=== PATIENT | female | born 1980 | race Caucasian/White ===

== ENCOUNTER 2018-06-27 14:36 | Emergency (ER) | payer BC, OTHER ==
[2018-06-27 14:57] VITALS: BMI 33.0
--- NOTE | 2018-06-27 14:57 | PDOC ---
Rapid Medical Evaluation Time Seen by Provider: 06/27/18 14:53 Medical Evaluation: Allergies Allergy/AdvReac Type Severity Reaction Status Date / Time diphenhydramine HCl Allergy Verified 06/29/15 03:21 [From Benadryl] iodine Allergy Vomiting Verified 06/29/15 03:21 shellfish derived Allergy Verified 06/29/15 03:21 06/27/18 14:54 I have performed a brief in-person evaluation of this patient. The patient presents with a chief complaint of: Chest pain this am, worse w/ any movement. 33 weeks , no issues w/ preg so far. H/o asthma Pertinent physical exam findings: Stable I have ordered the following:ekg/labs The patient will proceed to the ED for further evaluation. Discharge Disposition - Diagnosis Chest pain Qualifiers: Chest pain type: unspecified Qualified Code(s): R07.9 - Chest pain, unspecified - Referrals - Patient Instructions - Post Discharge Activity
[2018-06-27 16:03] LABS: BASO % 0.3 % (0-2.0); EOS % 2.2 % (0-4.5); HEMATOCRIT 33.5 % (32.4-45.2); HEMOGLOBIN 11.3 GM/dL (10.7-15.3); MCH 31.4 pg (25.7-33.7); MCHC 33.8 g/dl (32.0-36.0); MEAN CELL VOLUME 92.7 fl (80-96); MEAN PLT VOLUME 7.5 fl (7.5-11.1); MONO % 7.7 % (3.8-10.2); NEUT % 73.8 % (42.8-82.8); PLATELET COUNT 330 K/MM3 (134-434); RBC 3.62 M/mm3 (3.60-5.2); RDW 13.6 % (11.6-15.6)
[2018-06-27 17:03] LABS: ALBUMIN 2.4 g/dl (3.4-5.0); ALK PHOS 126 U/L (45-117); ANION GAP 8 MMOL/L (8-16); BILIRUBIN,TOTAL 0.2 mg/dL (0.2-1); BLOOD UREA NITROGEN 10 mg/dL (7-18); CALCIUM 8.6 mg/dL (8.5-10.1); CHLORIDE 107 mmol/L (98-107); CO2 23 mmol/L (21-32); CREATININE 0.5 mg/dL (0.55-1.3); GLUCOSE,RANDOM 73 mg/dL (74-106); POTASSIUM 4.1 mmol/L (3.5-5.1); SGOT/AST 17 U/L (15-37); SGPT/ALT 14 U/L (13-61); SODIUM 137 mmol/L (136-145); TOT PROT 6.4 g/dl (6.4-8.2)
[2018-06-27] MEDS ORDERED: ACETAMINOPHEN 500 MG TABLET (FP) PO ONE (17:33)
[2018-06-27] MEDS ORDERED: ACETAMINOPHEN 500 MG TABLET (FP) ONE (17:51)
--- NOTE | 2018-06-27 17:55 | PDOC ---
Attending Attestation - Resident Resident Name: Ary Montalvo - ED Attending Attestation I have performed the following: I have examined & evaluated the patient, The case was reviewed & discussed with the resident, I agree w/resident's findings & plan, Exceptions are as noted - Medical Decision Making 06/27/18 17:55 A portion of this note was documented by scribe services under my direction. I have reviewed the details of the note, within reason, and agree with the documentation with the following case summary and management plan written by me. Patient treated in the ED. Nursing notes are reviewed and incorporated into the medical decision-making. Vital signs reviewed. Peripheral IV access obtained by the nurse, laboratory studies are drawn and sent, reviewed and interpreted by myself. Vital Signs Temp Pulse Resp BP Pulse Ox 98.6 F 83 20 120/72 97 06/27/18 14:55 06/27/18 14:55 06/27/18 14:55 06/27/18 14:55 06/27/18 14:55 37-year-old female with past medical history of asthma presents with atypical chest pain since this morning. The patient's currently 33 weeks with her first . Reports no complications. Stated that she woke up and noticed a reproducible left upper chest pain worsened with movements. States occasionally when she takes a deep breath she notices symptoms but denies feeling short of breath. Denies short of breath on exertion. The patient's physical exam appears consistent with muscle skeletal chest pain. The patient has a normal EKG and a negative troponin. I do not suspect pulmonary embolism at this time. The patient has not taken any medications so we will give Tylenol. I advised patient to trial heat packs and Tylenol and to follow-up with the smutter. Pt feels reassured and would like to go home. <Rinku Tovar - Last Filed: 06/27/18 17:50> - HPI HPI: 06/27/18 17:59 The patient is a 37 year old 33 weeks female, with a significant past medical history of asthma, who presents to the emergency department with, left anterior chest wall radiating to left shoulder pain. As per patient, her pain is worsened with movement, pleuritic in nature, and pressure-like. She has not taken anything for her symptoms. She denies previous episodes of similar symptoms. She denies any shortness of breath or palpitations. She denies recent fevers, chills, headache or dizziness. She denies recent nausea, vomit, diarrhea or constipation. She denies recent dysuria, frequency, urgency or hematuria. Allergies: As per nursing notes. Past surgical history: None reported. Social history: Nonsmoker. Denies EtOH use and recreational drug use. - Physicial Exam PE: 06/27/18 17:59 GENERAL: Awake, alert, and fully oriented, in no acute distress HEAD: No signs of trauma EYES: PERRLA, EOMI, sclera anicteric, conjunctiva clear ENT: Auricles normal inspection, hearing grossly normal, nares patent, oropharynx clear without exudates. Moist mucosa NECK: Normal ROM, supple, no lymphadenopathy, JVD, or masses LUNGS: Breath sounds equal, clear to auscultation bilaterally. No wheezes, and no crackles HEART: Regular rate and rhythm, normal S1 and S2, no murmurs, rubs or gallops +CHEST: Reproducible left upper chest pain upon palpation. +ABDOMEN: Gravid. Soft, nontender, normoactive bowel sounds. No guarding, no rebound. No masses EXTREMITIES: Normal range of motion, no edema. No clubbing or cyanosis. No cords, erythema, or tenderness NEUROLOGICAL: Cranial nerves II through XII grossly intact. Normal speech, normal gait SKIN: Warm, Dry, normal turgor, no rashes or lesions noted. <Blue Yang - Last Filed: 06/27/18 17:59> Heart Score/ECG Review #1 ECG reviewed & interpreted by me at: 15:00 06/27/18 17:50 NSR 88, TWI III, normal axis, normal intervals, QTC 450 <Rinku Tovar - Last Filed: 06/27/18 17:50> Attestations - Attestations 06/27/18 17:59 Documentation prepared by Blue Yang, acting as medical office manager for Rinku Tovar MD. <Blue Yang - Last Filed: 06/27/18 17:59>
--- NOTE | 2018-06-27 18:00 | PDOC ---
History of Present Illness - General Chief Complaint: Chest Pain Stated Complaint: CHEST PAIN 33WKS Time Seen by Provider: 06/27/18 14:53 - History of Present Illness Initial Comments: Jennifer West is a 37yo woman with a h/o asthma, currently 33wks who presents with left upper chest v left shoulder pain since this morning. She reports that when she woke this morning, she noticed pain in her left upper chest that goes all the way through to her back. The left shoulder/chest is sore , and the pain worsens with deep breaths and shoulder movement. Ms West states that the pain was not that significant this morning, and she assumed that it would eventually stop on its own. She went to work today without any issues, though she does not have a physical job that requires lifting or significant arm movement. This afternoon, she had an appointment with her OB and was encouraged to come to the ED for evaluation. Ms West is not aware of any injury to her chest, shoulder, or back. She has not lifted anything heavy recently. She denies any fever, chills, new cough, palpitations, dizziness, nausea, abdominal pain, or unusual heartburn (though she has had some slight heartburn with her .) She does note some sneezing recently but no other infectious symptoms. She additionally denies any periods of immobility, travel, recent surgeries, broken bones, personal history of cancer, or coagulation disorder. She did not take any pain medication at home because she was concerned about what was safe during . Past History - Past Medical History Allergies/Adverse Reactions: Allergies Allergy/AdvReac Type Severity Reaction Status Date / Time Penicillins Allergy Unknown Verified 06/27/18 17:14 diphenhydramine HCl Allergy Vomiting Verified 06/27/18 17:13 [From Benadryl] iodine Allergy Vomiting Verified 06/29/15 03:21 shellfish derived Allergy Verified 06/27/18 17:13 Home Medications: Ambulatory Orders Albuterol Sulfate Inhaler - [Ventolin Hfa Inhaler -] 1 - 2 inh PO QID 06/27/18 No122/Iron/Folic Acid [ Multi Tablet] 1 each PO DAILY 06/27/18 Asthma: Yes COPD: No - Surgical History Appendectomy: Yes - Reproductive History Is Patient Now?: Yes - Suicide/Smoking/Psychosocial Hx Smoking History: Unknown if ever smoked Hx Alcohol Use: Yes (OCC) Substance Use Type: None Review of Systems - Review of Systems Comments:: General: No fevers, no chills, no weight or appetite change, no malaise HEENT: No changes in vision, no changes in hearing, no congestion, no sore throat CV: No palpitations, no LE edema Pulm: No SOB, no cough, no wheezing. +pleuritic chest pain GI: No nausea or vomiting, no change in bowel habits, no melena : No frequency, no urgency, no dysuria Musc: No back pain, no joint swelling, no recent injury Skin: No rash, no lesions, no erythema Endo: No excessive thirst, no heat/cold intolerance Heme: No unusual bruising or bleeding, no swollen glands Neuro: No syncope, no numbness/tingling, no focal weakness Vasc: No claudication Psych: No recent change in mood, no SI or HI *Physical Exam - Vital Signs Last Vital Signs Temp Pulse Resp BP Pulse Ox 98.6 F 83 20 120/72 97 06/27/18 14:55 06/27/18 14:55 06/27/18 14:55 06/27/18 14:55 06/27/18 14:55 - Physical Exam Comments: General: Comfortable, no acute distress HEENT: PERRL, EOMI, MMM, voice normal, normal neck ROM, no LAD Cards: RRR, no murmur appreciated Pulm: Comfortable on room air, clear to auscultation bilaterally Chest/Back: Tender with deep palpation at left upper chest and back Abd: Gravid, soft, nontender Ext: Atraumatic. No LE edema. ROM intact. Strength 5/5 and equal bilaterally. Left shoulder pain with active and passive movement Vasc: Extremities WWP. Palpable radial and pedal pulses bilaterally Skin: Normal color, no rashes or lesions Neuro: A&Ox3, CN grossly intact, normal speech, motor/sensory grossly intact and symmetric Psych: Mood appropriate to situation Heart Score/ECG Review - History History: Slightly suspicious - Electrocardiogram EKG: Normal - Age Age: </= 45 - Risk Factors Risk Factors Heart Score: No Hx Hypercholesterolemia, No Hx Hypertension, No Hx Diabetes, No Smoking History, No Positive family hx of cardiac disease, No Hx Obesity Based on the list above the patient has:: No risk factors known - Troponin Troponin: </= normal limit - Score Heart Score - Total: 0 - ECG Intrepretation Rhythm: Regular Rhythm - Ansted Ansted: Normal - ECG Impressions Normal ECG: Yes Non-specific ST Elevation: No Ischemic Changes: No Bradycardia: No Comment:: 06/27/18 18:04 Normal sinus ED Treatment Course - LABORATORY CBC & Chemistry Diagram: 06/27/18 15:50 06/27/18 17:00 - ADDITIONAL ORDERS Additional order review: Laboratory Results 06/27/18 06/27/18 17:00 15:50 Sodium 137 Potassium 4.1 Chloride 107 Carbon Dioxide 23 Anion Gap 8 BUN 10 Creatinine 0.5 L Creat Clearance w eGFR > 60 Random Glucose 73 L Calcium 8.6 Total Bilirubin 0.2 AST 17 ALT 14 Alkaline Phosphatase 126 H Creatine Kinase 47 Troponin I < 0.02 Total Protein 6.4 Albumin 2.4 L 06/27/18 15:50 RBC 3.62 MCV 92.7 MCHC 33.8 RDW 13.6 MPV 7.5 D Neutrophils % 73.8 Lymphocytes % 16.0 D Monocytes % 7.7 Eosinophils % 2.2 D Basophils % 0.3 Medical Decision Making - Medical Decision Making 06/27/18 18:05 Jennifer West is a 37yo woman with a history of asthma, currently 33wks ( no complicaitons) who presents with left shoulder v upper chest/back pain. - EKG and labs ordered in triage - EKG reviewed. NSR without any abnormalities noted - Labs without any notable abnormalities. Troponin negative - Normal vitals. No tachycardia, no tachypnea, satting well, no fever - No concerns for cardiac or pulmonary abnormalities given normal labs, normal vitals, normal heart/lung exams - Pain worse with palpation, arm movement, and deep breathing strongly suggests musculoskeletal pain - Plan to give 1g PO acetaminophen for pain - Will discharge home. Acetaminophen, heat packs for pain relief. Should follow up with her PMD within the next week. Discussed with Ms West, who agrees to this plan. Discussed with Dr Tovar. Ary Montalvo PGY1 *DC/Admit/Observation/Transfer Diagnosis at time of Disposition: Musculoskeletal chest pain - Discharge Dispostion Disposition: HOME Condition at time of disposition: Good Decision to Admit order: No - Referrals Referrals: Pavan Jain MD [Staff Physician] - - Patient Instructions Printed Discharge Instructions: DI for Atypical Chest Pain Additional Instructions: Discharge Instructions: - You were seen in the ED for left chest, shoulder, and left upper back pain - You had tests of your heart and lungs that were all normal - Your pain is most likely due to soreness in your chest or shoulder muscles - You should take acetaminophen (Tylenol) up to 1g (two extra-strength tablets) every 6 hours for pain. Do NOT take more than 4g (4000mg) per day - Consider using heat or cold packs to help with pain relief - Follow up with your primary physician within the next week. You have been referred to the resident clinic with Dr Jain if you need to establish care with a primary care doctor - Seek emergency care at the closest available ED if you have chest pain associated with difficulty breathing, racing heart, loss of consiousness. See your regular doctor if you develop a cough or fever to 101 or higher. - Post Discharge Activity
[2018-06-27 19:47] VITALS: BP 122/68; PULSE 80; TEMP 98.4
--- NOTE | 2018-06-29 15:17 | EKG ---
Test Reason : Blood Pressure : / mmHG Vent. Rate : 088 BPM Atrial Rate : 088 BPM P-R Int : 128 ms QRS Dur : 082 ms QT Int : 372 ms P-R-T Axes : 034 060 033 degrees QTc Int : 450 ms NORMAL SINUS RHYTHM NORMAL ECG NO PREVIOUS ECGS AVAILABLE Confirmed by ANAND MAXWELL, NATE ([id number]) on 06/29/2018 3:17:33 PM Referred By: Confirmed By:NATE MICHEL MD
== END 2018-06-27 19:45 | disposition home or self-care (01) ==
LOC: JER 14:36
DX: O26.893 Other specified pregnancy related conditions, third trimester (principal); R07.89 Other chest pain; O99.511 Diseases of the respiratory system complicating pregnancy, first trimester; J45.909 Unspecified asthma, uncomplicated; Z3A.33 33 weeks gestation of pregnancy; Z88.0 Allergy status to penicillin; Z91.013 Allergy to seafood; Z88.8 Allergy status to other drugs, medicaments and biological substances
CPT/HCPCS: 36415; 80053; 82550; 84484; 85025; 93005; 93010; 99282-25

== ENCOUNTER 2018-07-28 03:50 | Inpatient (IN) | payer OTHER, BC ==
[2018-07-28] MEDS ORDERED: DEXTROSE 5%-LACTATED RINGERS 500 ML IV ONE (04:20)
[2018-07-28] MEDS ORDERED: DEXTROSE 5%-LACTATED RINGERS 1,000 ML IV ONE (04:50)
[2018-07-28 05:07] LABS: BASO % 0.4 % (0-2.0); EOS % 1.2 % (0-4.5); HEMATOCRIT 33.3 % (32.4-45.2); HEMOGLOBIN 11.2 GM/dL (10.7-15.3); LYMPH % 14.2 % (8-40); MCH 30.7 pg (25.7-33.7); MCHC 33.6 g/dl (32.0-36.0); MEAN CELL VOLUME 91.5 fl (80-96); MEAN PLT VOLUME 8.3 fl (7.5-11.1); MONO % 7.2 % (3.8-10.2); PLATELET COUNT 314 K/MM3 (134-434); RBC 3.64 M/mm3 (3.60-5.2); RDW 13.9 % (11.6-15.6); WHITE BLOOD COUNT 11.6 K/mm3 (4.0-10.0)
[2018-07-28 05:13] VITALS: BMI 34.2
[2018-07-28 05:24] LABS: INR 0.94 (0.83-1.09); PROTHROMBIN TIME (PATIENT) 11.1 SEC (9.7-13.0)
[2018-07-28 05:27] LABS: ACTIVATED PTT 23.5 SECONDS (25.2-36.5)
[2018-07-28 05:35] LABS: ANION GAP 13 MMOL/L (8-16); BLOOD UREA NITROGEN 10 mg/dL (7-18); CALCIUM 8.8 mg/dL (8.5-10.1); CHLORIDE 104 mmol/L (98-107); CO2 20 mmol/L (21-32); CREATININE 0.6 mg/dL (0.55-1.3); GLUCOSE,RANDOM 79 mg/dL (74-106); SODIUM 137 mmol/L (136-145)
--- NOTE | 2018-07-28 07:13 | HP ---
Past Medical History - Admission History of Present Illness: 37 yo @ 37 6/7 wks by first trimester ultrasound, EDC 08/12/2018 complicated by: 1. Overweight - 40 lb wt gain this Elevated 1 H GCT, negative GTT Most recent EFW 2847g, 64 % 07/11/18 2. Very distant history of epilepsy No seizures in > 15+ years No medications 3. AMA - [id number] WNL AFP WNL Patient reports contractions which began yesterday and increased in intensity and frequency at 0300. She reports movement, denies leakage of fluid or vaginal bleeding. History Source: Patient Limitations to Obtaining History: No Limitations - Past Medical History Cardiovascular: No: HTN Pulmonary: Yes: Asthma Gastrointestinal: No: GERD ...: 2 ...Para: 0 ...Term: 0 ...: 0 ...Spon : 1 ...Induced : 0 ...Multiple Gestation: 0 ...EDC by Sono: 08/12/18 Heme/Onc: No: Anemia - Past Surgical History Past Surgical History: Yes: Appendectomy Hx Myomectomy: No Hx Transabdominal Cerclage: No - Smoking History Smoking history: Never smoked Have you smoked in the past 12 months: No - Alcohol/Substance Use Hx Alcohol Use: No History of Substance Use: reports: None - Social History Usual Living Arrangement: Yes: With Spouse History of Recent Travel: No Home Medications - Allergies Allergies/Adverse Reactions: Allergies Allergy/AdvReac Type Severity Reaction Status Date / Time Penicillins Allergy Unknown Verified 06/27/18 17:14 diphenhydramine HCl Allergy Vomiting Verified 06/27/18 17:13 [From Benadryl] iodine Allergy Vomiting Verified 06/29/15 03:21 shellfish derived Allergy Verified 06/27/18 17:13 - Home Medications Home Medications: Ambulatory Orders Albuterol Sulfate Inhaler - [Ventolin Hfa Inhaler -] 1 - 2 inh PO QID 06/27/18 Flaxseed/Omega3,6,9/Fatty Acid [Flax Seed Oil 1,300 mg Softgel] 1 capl PO BID No122/Iron/Folic Acid [ Multi Tablet] 1 each PO DAILY 06/27/18 Family Disease History - Family Disease History Family History: Denies Review of Systems - Review of Systems Constitutional: reports: No Symptoms Cardiovascular: reports: No Symptoms Respiratory: reports: No Symptoms Gastrointestinal: reports: No Symptoms Genitourinary: reports: No Symptoms Neurological: reports: No Symptoms Endocrine: reports: No Symptoms Physical Exam - Maternity Vital Signs: Vital Signs Temperature 98.1 F 07/28/18 04:20 Pulse Rate 92 H 07/28/18 04:20 Respiratory Rate 18 07/28/18 04:20 Blood Pressure 123/79 07/28/18 04:20 O2 Sat by Pulse Oximetry (%) Constitutional: Yes: Well Nourished, No Distress, Calm Cardiovascular: Yes: Regular Rate and Rhythm Lungs: Clear to auscultation - Abdominal Exam/OB Number of Fetuses: Single Presentation: Vertex Contractions: Yes Regularity: Regular Intensity: Mod/Strong Category: I Accelerations: Non-Uniform Decelerations: None - Vaginal Exam/OB Vaginal Bleediing: No Dilatation (cm): 4 Effacement (%): 90 Amniotic Membrane Status: Intact Station: -3 - Physical Exam Psychiatric: Yes: Alert, Oriented - Labs Lab Results: CBC, BMP 07/28/18 04:15 07/28/18 04:15 PNL: O positive, antibody negative, RPR NR; HIV neg; HBS Ag neg; HCV neg; Hg Elise AA; Parvo immune; Rubella immune; varicella immune; GCT 131 --> GTT WNL; GBS neg; Inheritest WNL Hemorrhage Risk Assessment - Risk Factors Medium Risk Factors: Yes: None High Risk Factors: Yes: None Risk Score: 1 Risk Level: Medium Risk Assessment/Plan 37 yo @ 37 + wks active labor 1. Admit to L&D 2. Consents reviewed and signed 3. GBS negative 4. Will offer pain medication upon request 5. Will proceed with expectant management
[2018-07-28] MEDS: ELECTROLYTE-148 SOLN 1,000 ML IV SCH ×2 (07:15→18:00)
[2018-07-28] MEDS ORDERED: BUPIVACAINE HCL/PF 0.25% (2.5MG/ML) 10 ML VIAL ONE (07:30)
[2018-07-28] MEDS ORDERED: FENTANYL/BUPIVACAINE/NS/PF - PCEA - 50 ML DISP.SYRIN EP ONE ×4 (07:32→18:08)
[2018-07-28] MEDS ORDERED: NALOXONE HCL 0.4 MG/ML VIAL IVPUSH PRN (08:03)
[2018-07-28] MEDS ORDERED: FENTANYL/BUPIVACAINE/NS/PF - PCEA - 50 ML DISP.SYRIN EP SCH (08:15)
[2018-07-28] MEDS ORDERED: CITRIC ACID/SODIUM CITRATE 30 ML UNIT-DOSE CUP PO ONE (10:45)
--- NOTE | 2018-07-28 11:05 | PN ---
Ante-Partal Exam - Subjective Subjective: No complaints Vital Signs: Vital Signs Temperature 98.2 F 07/28/18 10:00 Pulse Rate 97 H 07/28/18 10:30 Respiratory Rate 18 07/28/18 10:30 Blood Pressure 103/79 07/28/18 10:30 O2 Sat by Pulse Oximetry (%) 98 07/28/18 10:30 Bleeding: No Headache: No Visual changes: No Right upper quadrant pain: No Pain (scale 1-10): 0 - Contractions Contractions: Yes Regularity: Irregular Intensity: Mod/Strong Monitor Mode: External - Exam during Labor Heart Rate: 145 Variability: Moderate Heart Rate Location: Midline Category: I Monitor Accelerations: Present Monitor Decelerations: None (prolonged decel x 1 after AROM- recovered spont)) Exam: Vaginal Dilatation (cm): 5 Effacement (%): 90 Amniotic Membrane Status: Bulging Presentation: Vertex Station: 0 - Intrapartum Hemorrhage Risk Medium Risk Factors: None High Risk Factors: None Risk Score: 0 Risk Level: Low Risk - Assessment/Plan Assessment/Plan: 37yo P0 with active labor. Fetus with Category I tracing. AROM was done. Plan to monitor labor.
[2018-07-28] MEDS ORDERED: OXYTOCIN 30 UNITS in 0.9% NS 30 UNIT/500 ML INFUS.BAG IVPB ONE (13:39)
[2018-07-28] MEDS ORDERED: ALBUTEROL SO4 8 GM HFA INHALER IH PRN ×2 (13:43→13:46)
--- NOTE | 2018-07-28 13:43 | PN ---
Ante-Partal Exam - Subjective Subjective: No complaints Vital Signs: Vital Signs Temperature 98.2 F 07/28/18 10:00 Pulse Rate 109 H 07/28/18 13:15 Respiratory Rate 18 07/28/18 13:15 Blood Pressure 113/63 07/28/18 13:15 O2 Sat by Pulse Oximetry (%) 95 07/28/18 13:15 Bleeding: No Headache: No Visual changes: No Right upper quadrant pain: No Pain (scale 1-10): 0 - Contractions Contractions: Yes Regularity: Irregular Intensity: Moderate Monitor Mode: External - Exam during Labor Heart Rate: 140 Variability: Moderate Heart Rate Location: Midline Category: I Monitor Accelerations: Present Monitor Decelerations: None Exam: Vaginal Dilatation (cm): 5 Effacement (%): 90 Amniotic Membrane Status: Leaking Amniotic Fluid: Clear Presentation: Vertex Station: 0 Remarks: Adequate pelvimetry, EFW ~3200g by Roger's maneuvers - Intrapartum Hemorrhage Risk Medium Risk Factors: None High Risk Factors: None Risk Score: 0 Risk Level: Low Risk - Assessment/Plan Assessment/Plan: Arrest of dilation Inadequate contractions Fetus with category I tracing Tx options d/w pt, including expectant mgt, pitocin, or C/S. Risks abd benefits explained. Pt prefers pitocin augmentation.
[2018-07-28] MEDS ORDERED: OXYTOCIN 30 UNITS in 0.9% NS 30 UNIT/500 ML INFUS.BAG IVPB SCH (13:45)
[2018-07-28] MEDS ORDERED: OXYTOCIN 20 UNITS in 0.9% NS 20 UNIT/1,000 ML INFUS.BAG IV ONE (18:25)
[2018-07-28] MEDS ORDERED: LIDOCAINE HCL 1% PRESERVATIVE FREE - 30ML VIAL ONE (18:25)
[2018-07-28] MEDS ORDERED: OXYTOCIN 20 UNITS in 0.9% NS 20 UNIT/1,000 ML INFUS.BAG IV SCH (20:15)
[2018-07-28] MEDS ORDERED: WITCH HAZEL 50% (TUCKS) 40 PAD/JAR PAD TP PRN (20:15)
[2018-07-28] MEDS ORDERED: BISACODYL 10 MG SUPP.RECT RC PRN (20:15)
[2018-07-28] MEDS ORDERED: BENZOCAINE 20% 57 GM BOTTLE TP PRN (20:15)
[2018-07-28] MEDS ORDERED: oxyCODONE HCL 5 MG TABLET PO PRN (20:15)
[2018-07-28] MEDS ORDERED: METHYLERGONOVINE MALEATE 0.2 MG/1 ML AMP IM PRN (20:15)
[2018-07-28] MEDS ORDERED: BENZOCAINE 28 GM HEMORRHOIDAL OINTMENT TP PRN (20:15)
[2018-07-28] MEDS: ACETAMINOPHEN 325 MG TABLET (FP) PO PRN (22:49)
[2018-07-28] MEDS: IBUPROFEN 600 MG TABLET (FP) PO PRN (22:51)
[2018-07-29] MEDS: ACETAMINOPHEN 325 MG TABLET (FP) PO PRN ×3 (06:15→21:44)
[2018-07-29] MEDS: IBUPROFEN 600 MG TABLET (FP) PO PRN ×4 (06:17→21:45)
[2018-07-29 08:06] LABS: BASO % 0.2 % (0-2.0); EOS % 0.4 % (0-4.5); HEMATOCRIT 28.7 % (32.4-45.2); HEMOGLOBIN 10.1 GM/dL (10.7-15.3); LYMPH % 11.1 % (8-40); MCH 32.7 pg (25.7-33.7); MCHC 35.4 g/dl (32.0-36.0); MEAN CELL VOLUME 92.2 fl (80-96); MEAN PLT VOLUME 8.2 fl (7.5-11.1); MONO % 6.9 % (3.8-10.2); NEUT % 81.4 % (42.8-82.8); PLATELET COUNT 267 K/MM3 (134-434); RBC 3.11 M/mm3 (3.60-5.2); RDW 13.9 % (11.6-15.6); WHITE BLOOD COUNT 18.1 K/mm3 (4.0-10.0)
--- NOTE | 2018-07-29 08:11 | PN ---
Delivery - Delivery Vaginal Delivery: No Problems, Spontaneous Type of Anesthesia: Epidural Episiotomy/Laceration: Perineal Extension/lac, 2nd degree EBL (cc): 300 Delivery, Single - Stages of Labor Date 1st Stage Initiatied: 07/28/18 Time 1st Stage Initiated: 07:45 Date 2nd Stage Initiated: 07/28/18 Time 2nd Stage Initiated: 19:00 Date of Delivery: 07/28/18 Time of Delivery: 19:55 Date Placenta Delivered: 07/28/18 Time Placenta Delivered: 20:05 Placenta: Yes: Spontaneous, Normal Configuration - Condition of Executive Coordinator/Mill Controller Present: No Gender: Female Weight: 3.26 kg Position: Left, OA Total Hours ROM (Hrs/Mins): 9HOURS/37MIN - 1 Minute Total Score: 9 5 Minutes Total Score: 9 - [place] Feeding Plan Initial Plan: Elected not to breastfeed exclusively throughout hospitalization Remarks - Remarks Remarks: w/o problems
--- NOTE | 2018-07-29 08:12 | PN ---
Post Progress Note - Subjective Subjective: No complaints Post Day: 1 Type of Delivery: Vital Signs: Vital Signs Temperature 98 F 07/29/18 06:00 Pulse Rate 83 07/29/18 06:00 Respiratory Rate 18 07/29/18 06:00 Blood Pressure 113/60 07/29/18 06:00 O2 Sat by Pulse Oximetry (%) 100 07/28/18 19:00 Breast Exam: Yes: Soft Uterus: Yes: Fundus Firm, Fundus below umbilicus, Non-tender Abdomen/GI: Yes: Abdomen soft, Passing flatus, Tolerating PO Lochia: Yes: Rubra Lochia, amount: Small Extremities: Yes: Calves non-tender Perineum: Yes: Intact Activity: Ambulating - Labs Labs: CBC WBC 18.1 K/mm3 (4.0-10.0) H 07/29/18 07:15 RBC 3.11 M/mm3 (3.60-5.2) L 07/29/18 07:15 Hgb 10.1 GM/dL (10.7-15.3) L 07/29/18 07:15 Hct 28.7 % (32.4-45.2) L 07/29/18 07:15 MCV 92.2 fl (80-96) 07/29/18 07:15 MCH 32.7 pg (25.7-33.7) 07/29/18 07:15 MCHC 35.4 g/dl (32.0-36.0) 07/29/18 07:15 RDW 13.9 % (11.6-15.6) 07/29/18 07:15 Plt Count 267 K/MM3 (134-434) 07/29/18 07:15 MPV 8.2 fl (7.5-11.1) 07/29/18 07:15 Absolute Neuts (auto) 14.7 K/mm3 (1.5-8.0) H 07/29/18 07:15 Neutrophils % 81.4 % (42.8-82.8) 07/29/18 07:15 Lymphocytes % 11.1 % (8-40) D 07/29/18 07:15 Monocytes % 6.9 % (3.8-10.2) 07/29/18 07:15 Eosinophils % 0.4 % (0-4.5) 07/29/18 07:15 Basophils % 0.2 % (0-2.0) 07/29/18 07:15 Nucleated RBC % 0 % (0-0) 07/29/18 07:15 Assessment/Plan 37yo P1 s/p , doing well stable, afebrile. care instructions reviewed. Continue routine care. Ambulation encouraged Discharge instruction reviewed.
[2018-07-29] MEDS: PRENATAL VITAMINS W/ FOLIC ACID TABLET (FP) PO SCH ×2 (11:14→11:16)
[2018-07-29] MEDS ORDERED: SENNOSIDES/DOCUSATE COMBO (SENNA PLUS) TABLET (UD) PO PRN (22:00)
[2018-07-30] MEDS: IBUPROFEN 600 MG TABLET (FP) PO PRN (08:24)
[2018-07-30] MEDS: ACETAMINOPHEN 325 MG TABLET (FP) PO PRN (08:25)
[2018-07-30 09:48] VITALS: BP 117/69; PULSE 87; TEMP 98.7
[2018-07-30] MEDS: PRENATAL VITAMINS W/ FOLIC ACID TABLET (FP) PO SCH (10:13)
--- NOTE | 2018-07-31 13:18 | DS ---
Physical Exam-NETWORK RELATIONS CONSULTANT Vital Signs: Vital Signs Temperature 98.7 F 07/30/18 09:42 Pulse Rate 87 07/30/18 09:42 Respiratory Rate 20 07/30/18 09:42 Blood Pressure 117/69 07/30/18 09:42 O2 Sat by Pulse Oximetry (%) 100 07/28/18 19:00 Constitutional: Yes: Well Nourished, No Distress, Calm Eyes: Yes: WNL, Conjunctiva Clear HENT: Yes: WNL, Atraumatic, Normocephalic Neck: Yes: WNL, Supple, Trachea Midline Cardiovascular: Yes: WNL, Regular Rate and Rhythm Respiratory: Yes: WNL, Regular, CTA Bilaterally Gastrointestinal: Yes: WNL ...Rectal Exam: Yes: Deferred Renal/: Yes: WNL ....Post : Yes: Uterus firm, Uterus non-tender Breast(s): Yes: WNL Musculoskeletal: Yes: WNL Extremities: Yes: WNL Edema: Yes Edema: LLE: Trace, RLE: Trace Integumentary: Yes: WNL Neurological: Yes: WNL, Alert, Oriented ...Motor Strength: WNL Psychiatric: Yes: WNL, Alert, Oriented Labs: CBC, BMP 07/29/18 07:15 07/28/18 04:15 Delivery - Delivery Vaginal Delivery: No Problems, Spontaneous Type of Anesthesia: Epidural Episiotomy/Laceration: Perineal Extension/lac, 2nd degree EBL (cc): 300 Delivery, Single - Stages of Labor Date 1st Stage Initiatied: 07/28/18 Time 1st Stage Initiated: 07:45 Date 2nd Stage Initiated: 07/28/18 Time 2nd Stage Initiated: 19:00 Date of Delivery: 07/28/18 Time of Delivery: 19:55 Date Placenta Delivered: 07/28/18 Time Placenta Delivered: 20:05 Placenta: Yes: Spontaneous, Normal Configuration - Condition of Diesel Engine Erector/[employer] Team Member Present: No Gender: Female Weight: 3.26 kg Position: Left, OA Total Hours ROM (Hrs/Mins): 9HOURS/37MIN - 1 Minute Total Score: 9 5 Minutes Total Score: 9 - Feeding Plan Initial Plan: Elected not to breastfeed exclusively throughout hospitalization Remarks - Remarks Remarks: w/o problems Discharge Summary Reason For Visit: ADMIT LABOR Procedures: Principal: Hospital Course: Normal recovery Condition: Good - Instructions Diet, Activity, Other Instructions: Follow up with md in 4 weeks. Referrals: Marc Clarke MD [Staff Physician] - Disposition: HOME - Home Medications Comprehensive Discharge Medication List: Ambulatory Orders Albuterol Sulfate Inhaler - [Ventolin Hfa Inhaler -] 1 - 2 inh PO QID PRN Flaxseed/Omega3,6,9/Fatty Acid [Flax Seed Oil 1,300 mg Softgel] 1 capl PO BID No122/Iron/Folic Acid [ Multi Tablet] 1 each PO DAILY 06/27/18
== END 2018-07-30 14:35 | disposition home or self-care (01) | DRG 807 ==
LOC: JDEL 03:50 → JLDR 04:20 → J3W 22:34
PROVIDERS: ADMIT Obstetrics & Gynecology; ATTEND Obstetrics & Gynecology
PROC: 10E0XZZ Delivery of Products of Conception, External Approach (ICD-10-PCS; principal; 2018-07-29)
PROC: 0KQM0ZZ Repair Perineum Muscle, Open Approach (ICD-10-PCS; 2018-07-29)
DX: O62.0 Primary inadequate contractions (principal); Z37.0 Single live birth; O62.1 Secondary uterine inertia; O70.1 Second degree perineal laceration during delivery; O26.893 Other specified pregnancy related conditions, third trimester; J45.909 Unspecified asthma, uncomplicated; Z3A.37 37 weeks gestation of pregnancy
CPT/HCPCS: 36415; 59025; 59409; 80048; 85025; 85610; 85730; 86593; 86850; 86900; 86901

== ENCOUNTER 2019-06-19 19:12 | Emergency (ER) | payer BC ==
[2019-06-19 19:19] VITALS: TEMP 98.2; BMI 29.0
[2019-06-19] MEDS ORDERED: methylPREDNISolone NA SUCC 125 MG/2 ML VIAL IVPB ONE (20:24)
--- NOTE | 2019-06-19 20:24 | PDOC ---
Rapid Medical Evaluation Chief Complaint: Allergic Reaction Time Seen by Provider: 06/19/19 20:20 Medical Evaluation: Allergies Allergy/AdvReac Type Severity Reaction Status Date / Time Penicillins Allergy Unknown Verified 07/28/18 21:49 diphenhydramine HCl Allergy Vomiting Verified 07/28/18 21:49 [From Benadryl] iodine Allergy Vomiting Verified 07/28/18 21:49 shellfish derived Allergy Verified 07/28/18 21:49 Vital Signs Temp Pulse Resp BP Pulse Ox 98.2 F 90 17 133/75 99 06/19/19 19:16 06/19/19 19:16 06/19/19 19:16 06/19/19 19:16 06/19/19 19:16 06/19/19 20:20 I have performed a brief in-person evaluation of this patient. The patient presents with a chief complaint of: Allergic reaction to fish. Known allergy, she ate contaminated food. C/O difficulty breathing and chest tightness/throat tightness. Pt did not take any meds, she is allergic to benadryl. Pertinent physical exam findings: mild exp wheezing, decreased breath sounds. No stridor. minimal uvula edema I have ordered the following: Solumedrol, duoneb The patient will proceed to the ED for further evaluation. Discharge Disposition - Diagnosis Allergic reaction - Discharge Dispostion Last Admission D/C Date: 07/30/18 - Referrals - Patient Instructions - Post Discharge Activity
[2019-06-19] MEDS ORDERED: ALBUTEROL SO4 2.5/IPRATROPIUM 0.5 INH SOL 3 ML VIAL.NEB. NEB ONE ×2 (20:38→20:40)
[2019-06-19] MEDS ORDERED: methylPREDNISolone NA SUCC 125 MG/2 ML VIAL ONE (20:40)
[2019-06-19] MEDS: ALBUTEROL SO4 2.5/IPRATROPIUM 0.5 INH SOL 3 ML VIAL.NEB. NEB SCH ×3 (20:40→21:10)
--- NOTE | 2019-06-19 20:49 | PDOC ---
Attending Attestation - Resident Resident Name: Aimee Camarillo - ED Attending Attestation I have performed the following: I have examined & evaluated the patient, The case was reviewed & discussed with the resident, I agree w/resident's findings & plan - HPI HPI: 06/19/19 21:54 see resident hpi - Physicial Exam PE: 06/19/19 21:54 agree with resident hpi - Medical Decision Making 06/19/19 21:55 38-year-old female with complaints of chest tightness after exposure to fish with known allergy Patient's complaints appear to be mainly subjective Exam has remained within normal limits She did receive Solu-Medrol and a nebulizer treatment in the department She has remained stable There is no evidence of angioedema, airway remains intact She will be discharged home to follow-up with her primary care physician
[2019-06-19] MEDS ORDERED: DEXAMETHASONE SOD PHOSPHATE 10 MG/1 ML VIAL IM ONE (21:02)
[2019-06-19] MEDS ORDERED: DEXAMETHASONE SOD PHOSPHATE 10 MG/1 ML VIAL ONE (21:04)
--- NOTE | 2019-06-19 21:35 | PDOC ---
History of Present Illness - General Chief Complaint: Allergic Reaction Stated Complaint: ALLERGIC REACTION Time Seen by Provider: 06/19/19 20:20 - History of Present Illness Initial Comments: 06/19/19 22:21 38 year old woman with a history of asthma and allergy to fish who presents with chest tightness and tingling in the throat. The patient reports a possible history of 12 ICU admissions for allergic reaction and throat swelling. She states that prior to arrival she ate food that was contaminated with some fish. She denies any rash, itching, difficulty breathing. She reports using her home albuterol prior to arrival ROS GENERAL/CONSTITUTIONAL: No fever or chills. No weakness. HEAD, EYES, EARS, NOSE AND THROAT: No change in vision. CARDIOVASCULAR: No chest pain or shortness of breath RESPIRATORY: No cough, wheezing, or hemoptysis. GASTROINTESTINAL: No nausea, vomiting, diarrhea or constipation. GENITOURINARY: No dysuria, frequency, or change in urination. MUSCULOSKELETAL: No joint or muscle swelling or pain. No neck or back pain. SKIN: No rash ALLERGIC/IMMUNOLOGIC: No hives or skin allergy. PE GENERAL: Awake, alert, and fully oriented, in no acute distress HEAD: No signs of trauma, normocephalic, atraumatic EYES: EOMI, sclera anicteric, conjunctiva clear ENT: oropharynx clear without exudates. Moist mucosa, No uvular edema, no oropharynx edema, rash or hives NECK: Normal ROM, supple LUNGS: No distress, speaks full sentences, clear to auscultation bilaterally HEART: Regular rate and rhythm, normal S1 and S2, no murmurs, rubs or gallops, peripheral pulses normal and equal bilaterally. ABDOMEN: Soft, nontender, normoactive bowel sounds. No guarding, no rebound. No masses EXTREMITIES : Normal inspection, Normal range of motion, no edema. No clubbing or cyanosis. NEUROLOGICAL: Cranial nerves II through XII grossly intact. Normal speech, no focal sensorimotor deficits SKIN: Warm, Dry, normal turgor, no rashes or lesions noted MDM DDX including but not limited to: allergic reaction [place]: - decadron, duoneb ED Course: Patient reassessed, stable for discharge prescribed epipen educated on use of epipen and importance of trigger avoidance recommend pcp f/u within 1 week Aimee Camarillo, PGY2 Emergency Medicine Past History - Past Medical History Allergies/Adverse Reactions: Allergies Allergy/AdvReac Type Severity Reaction Status Date / Time Penicillins Allergy Unknown Verified 07/28/18 21:49 diphenhydramine HCl Allergy Vomiting Verified 07/28/18 21:49 [From Benadryl] iodine Allergy Vomiting Verified 07/28/18 21:49 shellfish derived Allergy Verified 07/28/18 21:49 Home Medications: Ambulatory Orders Albuterol Sulfate Inhaler - [Ventolin Hfa Inhaler -] 1 - 2 inh PO QID PRN Flaxseed/Omega3,6,9/Fatty Acid [Flax Seed Oil 1,300 mg Softgel] 1 capl PO BID No122/Iron/Folic Acid [ Multi Tablet] 1 each PO DAILY 06/27/18 EPINEPHrine (EPI-PEN 0.3MG) [Epipen 0.3MG -] 0.3 mg IM ASDIR #2 pens 06/19/19 EPINEPHrine (EPI-PEN 0.3MG) [Epipen 0.3MG -] 0.3 mg IM ASDIR #2 pens 06/19/19 Asthma: Yes (last attack 07/23/18) Cancer: No Cardiac Disorders: No COPD: No Diabetes: No HTN: No Hypercholesterolemia: No Seizures: No Thyroid Disease: No - Surgical History Appendectomy: Yes - Immunization History Immunization Up to Date: Yes - Psycho Social/Smoking Cessation Hx Smoking History: Former smoker Have you smoked in the past 12 months: No Information on smoking cessation initiated: No Hx Alcohol Use: No Drug/Substance Use Hx: No Substance Use Type: None Hx Substance Use Treatment: No *Physical Exam - Vital Signs Last Vital Signs Temp Pulse Resp BP Pulse Ox 98.2 F 90 17 133/75 99 06/19/19 19:16 06/19/19 19:16 06/19/19 19:16 06/19/19 19:16 06/19/19 19:16 ED Treatment Course - Medications Given in the ED: ED Medications Discontinued Medications Generic Name Dose Route Start Last Admin Trade Name Freq PRN Reason Stop Dose Admin Albuterol/Ipratropium 1 amp 06/19/19 20:30 06/19/19 21:10 Duoneb - NEB 06/19/19 21:16 1 amp Q15M TRUONG Administration Dexamethasone Sodium Phosphate 10 mg 06/19/19 21:02 06/19/19 21:09 Decadron Injection - IM 06/19/19 21:03 10 mg ONCE ONE Administration Methylprednisolone Sodium Succinate 125 mg 06/19/19 20:24 06/19/19 21:09 Solu-Medrol - IVPB 06/19/19 20:25 Not Given ONCE ONE Discharge - Discharge Information Problems reviewed: Yes Clinical Impression/Diagnosis: Allergic reaction Condition: Stable Disposition: HOME - Admission No - Additional Discharge Information Prescriptions: EPINEPHrine (EPI-PEN 0.3MG) [Epipen 0.3MG -] 0.3 mg IM ASDIR #2 pens EPINEPHrine (EPI-PEN 0.3MG) [Epipen 0.3MG -] 0.3 mg IM ASDIR #2 pens - Follow up/Referral - Patient Discharge Instructions Patient Printed Discharge Instructions: DI for General Allergic Reactions Additional Instructions: You were seen in the ED for complaints of allergic reaction In the ED you were treated symptomatically There does not appear to be an acute need for immediate hospitalization. You are advised to follow up with your Primary Care Physician within 1 week. You were given a prescription for and Epipen and you are advised to use this when necessary Return to the ED immediately if you experience worsening symptoms of throat tightening, difficulty breathing or other concerning symptoms. - Post Discharge Activity
[2019-06-20 01:31] VITALS: BP 131/81; PULSE 86
== END 2019-06-19 22:00 | disposition home or self-care (01) ==
LOC: JER 19:12
PROC: 3E0F7GC Introduction of Other Therapeutic Substance into Respiratory Tract, Via Natural or Artificial Opening (ICD-10-PCS; principal; 2019-06-19)
PROC: 3E0233Z Introduction of Anti-inflammatory into Muscle, Percutaneous Approach (ICD-10-PCS; 2019-06-19)
DX: T78.1XXA Other adverse food reactions, not elsewhere classified, initial encounter (principal); R06.02 Shortness of breath; X58.XXXA Exposure to other specified factors, initial encounter; Z91.013 Allergy to seafood; Z88.0 Allergy status to penicillin; Z88.8 Allergy status to other drugs, medicaments and biological substances
CPT/HCPCS: 99282-25; J1100

== ENCOUNTER 2022-10-20 12:50 | Emergency (ER) | payer BC ==
[2022-10-20 13:20] VITALS: BP 124/65; PULSE 64; RESP 19; TEMP 97.6; BMI 25.8
[2022-10-20] MEDS ORDERED: ONDANSETRON *ODT* 4 MG TABLET SL ONE (13:48)
[2022-10-20] MEDS ORDERED: IBUPROFEN 600 MG TABLET (FP) PO ONE ×2 (13:49→13:52)
[2022-10-20] MEDS ORDERED: ONDANSETRON *ODT* 4 MG TABLET ONE ×2 (13:52)
[2022-10-20] MEDS ORDERED: IBUPROFEN 400 MG TABLET (FP) PO ONE (13:53)
[2022-10-20] MEDS ORDERED: ACETAMINOPHEN 1000 MG/100 ML BAG IVPB ONE (15:15)
[2022-10-20] MEDS ORDERED: ONDANSETRON 4 MG/2 ML VIAL IVPUSH ONE (15:15)
[2022-10-20] MEDS ORDERED: SODIUM CHLORIDE 1,000 ML IV STA (15:15)
[2022-10-20] MEDS ORDERED: ACETAMINOPHEN INJECTION 100 ML IVPB ONE (15:25)
[2022-10-20] MEDS ORDERED: ONDANSETRON 4 MG/2 ML VIAL ONE (15:25)
== END 2022-10-20 19:12 | disposition home or self-care (01) ==
LOC: JERFT 12:50 → JER 12:50 → JERFT 19:12
PROC: 3E0333Z Introduction of Anti-inflammatory into Peripheral Vein, Percutaneous Approach (ICD-10-PCS; principal; 2022-10-20)
PROC: 3E033GC Introduction of Other Therapeutic Substance into Peripheral Vein, Percutaneous Approach (ICD-10-PCS; 2022-10-20)
PROC: 3E0337Z Introduction of Electrolytic and Water Balance Substance into Peripheral Vein, Percutaneous Approach (ICD-10-PCS; 2022-10-20)
DX: R11.2 Nausea with vomiting, unspecified (principal); R19.7 Diarrhea, unspecified
CPT/HCPCS: 99284-25; Q0162

== ENCOUNTER 2024-01-21 13:22 | Emergency (ER) | payer BC ==
[2024-01-21 13:38] VITALS: BP 110/60; PULSE 66; RESP 18; TEMP 98.6; BMI 26.6
[2024-01-21 15:13] LABS: BASO % 0.5 % (0-2.0); EOS % 1.2 % (0-4.5); HEMATOCRIT 33.6 % (32.4-45.2); HEMOGLOBIN 11.7 GM/dL (10.7-15.3); LYMPH % 23.4 % (8-40); MCHC 34.7 g/dl (32.0-36.0); MEAN CELL VOLUME 92.1 fl (80-96); MEAN PLT VOLUME 7.7 fl (7.5-11.1); MONO % 8.1 % (3.8-10.2); NEUT % 66.8 % (42.8-82.8); PLATELET COUNT 257 10^3/uL (134-434); RBC 3.65 M/mm3 (3.60-5.2); RDW 13.3 % (11.6-15.6); WHITE BLOOD COUNT 7.2 K/mm3 (4.0-10.0)
[2024-01-21 15:20] LABS: INR 1.03 (0.83-1.09); PROTHROMBIN TIME (PATIENT) 11.6 SEC (9.7-13.0)
[2024-01-21 15:22] LABS: ACTIVATED PTT 30.7 SECONDS (25.2-36.5)
[2024-01-21] MEDS ORDERED: ACETAMINOPHEN INJECTION 100 ML IVPB ONE (15:28)
[2024-01-21 15:36] LABS: POTASSIUM 4.2 mmol/L (3.5-5.1)
[2024-01-21 15:37] LABS: CALCIUM 8.2 mg/dL (8.5-10.1)
[2024-01-21 15:38] LABS: ALBUMIN 3.2 g/dl (3.4-5.0); BLOOD UREA NITROGEN 16.1 mg/dL (7-18)
[2024-01-21 15:40] LABS: CREATININE 0.7 mg/dL (0.55-1.3)
[2024-01-21 15:43] LABS: BILIRUBIN,TOTAL 0.2 mg/dL (0.2-1); TOT PROT 6.5 g/dl (6.4-8.2)
[2024-01-21] MEDS: ACETAMINOPHEN 1000 MG/100 ML BAG IVPB ONE (16:01)
[2024-01-21] MEDS: SODIUM CHLORIDE 1,000 ML IV STA (16:01)
[2024-01-21] MEDS ORDERED: METOCLOPRAMIDE HCL INJECTION 10 MG/2 ML VIAL ONE (17:47)
[2024-01-21] MEDS: METOCLOPRAMIDE HCL INJECTION 10 MG/2 ML VIAL IVPB ONE (17:53)
== END 2024-01-21 21:12 | disposition home or self-care (01) ==
LOC: JER 13:22
PROC: 3E033NZ Introduction of Analgesics, Hypnotics, Sedatives into Peripheral Vein, Percutaneous Approach (ICD-10-PCS; principal; 2024-01-21)
PROC: 3E033GC Introduction of Other Therapeutic Substance into Peripheral Vein, Percutaneous Approach (ICD-10-PCS; 2024-01-21)
PROC: 3E0337Z Introduction of Electrolytic and Water Balance Substance into Peripheral Vein, Percutaneous Approach (ICD-10-PCS; 2024-01-21)
DX: R07.89 Other chest pain (principal); R51.9 Headache, unspecified; R53.83 Other fatigue; R42 Dizziness and giddiness; R11.0 Nausea; M79.10 Myalgia, unspecified site; R05.1 Acute cough; R52 Pain, unspecified; Z20.822 Contact with and (suspected) exposure to COVID-19
CPT/HCPCS: 0241U-QW; 36415; 70450-TC; 71046-TC-FY; 80053; 84484; 84703; 85025; 85610; 85730; 93005; 93010; 99285-25; J0131

== ENCOUNTER 2024-09-08 15:10 | Emergency (ER) | payer BC, OTHER ==
[2024-09-08 15:39] VITALS: BP 111/68; PULSE 67; RESP 16; TEMP 98.3; BMI 24.7
[2024-09-08 17:53] LABS: BASO % 0.3 % (0-2.0); EOS % 0.8 % (0-4.5); HEMATOCRIT 36.4 % (32.4-45.2); HEMOGLOBIN 12.3 GM/dL (10.7-15.3); LYMPH % 21.6 % (8-40); MCH 31.6 pg (25.7-33.7); MCHC 33.7 g/dl (32.0-36.0); MEAN CELL VOLUME 93.8 fl (80-96); MEAN PLT VOLUME 8.6 fl (7.5-11.1); MONO % 6.7 % (3.8-10.2); NEUT % 70.6 % (42.8-82.8); PLATELET COUNT 267 10^3/uL (134-434); RBC 3.88 M/mm3 (3.60-5.2); RDW 13.7 % (11.6-15.6)
[2024-09-08] MEDS ORDERED: FAMOTIDINE 20 MG/50 ML IVPB 20 MG/50 ML MG IVPB ONE (17:56)
[2024-09-08] MEDS ORDERED: MAG HYDROX/AL HYDROX/SIMETH 30 ML UNIT-DOSE CUP ONE (17:56)
[2024-09-08] MEDS: FAMOTIDINE 20 MG/50 ML IVPB 20 MG/50 ML MG IVPB ONE (18:00)
[2024-09-08] MEDS: MAG HYDROX/AL HYDROX/SIMETH 30 ML UNIT-DOSE CUP PO ONE (18:00)
[2024-09-08 18:23] LABS: POTASSIUM 4.1 mmol/L (3.5-5.1)
[2024-09-08 18:25] LABS: ALBUMIN 3.6 g/dl (3.4-5.0); CALCIUM 8.6 mg/dL (8.5-10.1)
[2024-09-08 18:26] LABS: BLOOD UREA NITROGEN 13.9 mg/dL (7-18)
[2024-09-08 18:29] LABS: CREATININE 0.7 mg/dL (0.55-1.3)
[2024-09-08 18:30] LABS: BILIRUBIN,TOTAL 0.4 mg/dL (0.2-1)
[2024-09-08 19:18] LABS: HIV INTERPRETATION NEGATIVE (NEGATIVE)
== END 2024-09-08 19:01 | disposition home or self-care (01) ==
LOC: JER 15:10
PROC: 3E033GC Introduction of Other Therapeutic Substance into Peripheral Vein, Percutaneous Approach (ICD-10-PCS; principal; 2024-09-08)
DX: K80.20 Calculus of gallbladder without cholecystitis without obstruction (principal); R10.13 Epigastric pain; R07.89 Other chest pain
CPT/HCPCS: 36415; 71046-TC-FY; 76705-TC; 80053; 83690; 84484; 84703; 85025; 86803; 87389; 93005; 93010; 99285-25

== ENCOUNTER 2024-09-18 07:25 | Emergency (ER) | payer BC, OTHER ==
[2024-09-18 07:54] VITALS: PULSE 66; RESP 16; BMI 25.8
[2024-09-18 10:04] LABS: BASO % 0.4 % (0-2.0); EOS % 0.9 % (0-4.5); HEMATOCRIT 33.2 % (32.4-45.2); HEMOGLOBIN 11.5 GM/dL (10.7-15.3); LYMPH % 24.3 % (8-40); MCH 32.4 pg (25.7-33.7); MCHC 34.6 g/dl (32.0-36.0); MEAN CELL VOLUME 93.7 fl (80-96); MEAN PLT VOLUME 8.3 fl (7.5-11.1); MONO % 7.6 % (3.8-10.2); NEUT % 66.8 % (42.8-82.8); PLATELET COUNT 241 10^3/uL (134-434); RBC 3.54 M/mm3 (3.60-5.2); RDW 13.2 % (11.6-15.6); WHITE BLOOD COUNT 4.3 K/mm3 (4.0-10.0)
[2024-09-18 10:20] LABS: POTASSIUM 4.4 mmol/L (3.5-5.1)
[2024-09-18 10:22] LABS: ALBUMIN 3.3 g/dl (3.4-5.0); BLOOD UREA NITROGEN 15.4 mg/dL (7-18); CALCIUM 8.3 mg/dL (8.5-10.1)
[2024-09-18 10:26] LABS: CREATININE 0.6 mg/dL (0.55-1.3)
[2024-09-18 10:27] LABS: TOT PROT 6.6 g/dl (6.4-8.2)
[2024-09-18] MEDS: ACETAMINOPHEN 1000 MG/100 ML BAG IVPB ONE (10:45)
[2024-09-18] MEDS: SODIUM CHLORIDE 1,000 ML IV SCH (10:45)
[2024-09-18] MEDS: ONDANSETRON 4 MG/2 ML VIAL IVPUSH ONE ×2 (10:45→13:30)
[2024-09-18] MEDS ORDERED: ACETAMINOPHEN INJECTION 100 ML ONE (10:46)
[2024-09-18] MEDS ORDERED: ONDANSETRON 4 MG/2 ML VIAL ONE ×2 (10:47→13:22)
[2024-09-18 10:50] LABS: EPI CELLS >36 /uL (0-25.1); HYALINE CASTS 1 /uL (0-3.1); URINE APPEARANCE CLEAR; URINE BACTERIA 1523 /uL (0-1359); URINE BILIRUBIN NEGATIVE (NEGATIVE); URINE COLOR YELLOW; URINE GLUCOSE (UA) NEGATIVE (NEGATIVE); URINE KETONE NEGATIVE (NEGATIVE); URINE LEUK ESTERASE NEGATIVE (NEGATIVE); URINE NITRITE NEGATIVE (NEGATIVE); URINE PROTEIN TRACE (NEGATIVE); URINE RBC 16 /uL (0-23.9); URINE WBC 16 /uL (0-25.8)
[2024-09-18 11:27] LABS: BILIRUBIN,TOTAL 0.3 mg/dL (0.2-1)
[2024-09-18 14:08] VITALS: BP 112/60; TEMP 98.6
== END 2024-09-18 14:10 | disposition home or self-care (01) ==
LOC: JER 07:25
PROC: 3E033NZ Introduction of Analgesics, Hypnotics, Sedatives into Peripheral Vein, Percutaneous Approach (ICD-10-PCS; principal; 2024-09-18)
PROC: 3E033GC Introduction of Other Therapeutic Substance into Peripheral Vein, Percutaneous Approach (ICD-10-PCS; 2024-09-18)
PROC: 3E033GC Introduction of Other Therapeutic Substance into Peripheral Vein, Percutaneous Approach (ICD-10-PCS; 2024-09-18)
DX: K80.20 Calculus of gallbladder without cholecystitis without obstruction (principal); R10.13 Epigastric pain; R11.0 Nausea; K59.00 Constipation, unspecified; Z20.822 Contact with and (suspected) exposure to COVID-19
CPT/HCPCS: 0241U-QW; 36415; 74176-TC; 80053; 81003; 83605; 84703; 85025; 87086; 93005; 93010; 99285-25; J0131